=== PATIENT | female | born 1995 | race Caucasian/White ===

== ENCOUNTER 2025-03-03 08:28 | Emergency (ER) | payer MEDICAID ==
[~2025-03-03] VITALS: Ht 167.6 cm; Wt 86.4 kg
[2025-03-03 08:34] VITALS: BP 113/70; PULSE 89; RESP 13; TEMP 98.7; O2SAT 97
--- NOTE | 2025-03-03 09:32 | Physician Documentation ---
History of Present Illness ~ Chief Complaint: Vaginal Bleeding Stated Complaint: IUD COMPLICATIONS Time Seen by : 09:31 HPI 29-year-old female, 10 weeks , presenting with concern for IUD misplacement. She tells me she had an IUD placed a couple of weeks ago. Over the past couple of days she has not been able to feel the strings at her cervix anymore. She also reports having some small brown spotting last night. She contacted her Clinic, and they were trying to schedule an ultrasound, but could not make an appointment for her. She denies any significant infectious symptoms. No vaginal discharge otherwise. No significant lower abdominal pain at this time although she did have some pain at her incision site when she coughed earlier. Medication Reconciliation Allergies: Coded Allergies: chlorhexidine (Verified Allergy, Unknown, rash, 03/03/25) Review of Systems Constitutional: Denies: fever Gastrointestinal: Denies: abdominal pain, nausea, vomiting Physical Exam Vital Signs: Temperature: 98.7, Source: Oral, Heart Rate: 89, Respiratory Rate: 13, BP: 113/70, Pulse Oximetry: 97, Weight: 86.360 Oxygen Flow Rate: 0 Physical Exam General: This is a healthy and well-appearing young female, lying in bed with her children, partner at bedside HEENT: Atraumatic, oropharynx is moist Heart: Regular rate and rhythm, normal-appearing peripheral perfusion Lungs: normal work of breathing, normal oxygen saturation on room air Abdomen: Soft, nondistended, no significant tenderness on palpation in the suprapubic region. CC scar incision is well healing. Psychiatric: Calm and cooperative with exam Progress Results/Orders Results/Orders Orders - RD RICHARD MD Ultrasound Pelvis W/Orwo Dplx (03/03/25 09:49) Completed Orders - RD RICHARD MD Ultrasound Pelvis W/Orwo Dplx (03/03/25 09:49) Vital Signs 03/03/25 08:34 Temp 98.7 Pulse 89 Resp 13 B/P (MAP) 113/70 Pulse Ox 97 O2 Flow Rate 0 EKG/XRAY/CT/US/VASC/MRI Ultrasound : Impression I reviewed the ultrasound, and it appears to show an IUD within the uterus, without evidence of obvious perforation or displacement. I also reviewed the radiology report. Medical Decision Making Additional Comment The patient presents with concern for IUD migration. On exam she is well- appearing, has no significant abdominal tenderness, no significant vaginal bleeding or discharge, no fevers. Ultrasound is limited, but it appears to show an IUD in the correct location, without obvious complication. Given her well appearance I do not feel that any further workup or testing is indicated. 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 She will return here if she develops severe pain, uncontrollable bleeding, or other worsening symptoms. Departure Time of Disposition: 11:20 Disposition: 01 HOME / SELF CARE / HOMELESS Impression: Primary Impression: IUD check up Condition: Stable Referrals: NO PRIMARY CARE PROVIDER (PCP) Comments The ultrasound does not show any dangerous findings, the IUD appears to be in the right location. Please follow-up with your gynecology clinic for re-evaluation as soon as possible. Education Educated: Patient Educated regarding: diagnosis, need for follow up Signature Scribe Signature: na Attestation: RD Hardwick MD March 03, 2025 09:31
--- NOTE | 2025-03-03 11:02 | RADIOLOGY REPORT ---
INDICATION: Concern for IUD movement, can not feel strings TECHNIQUE: Multiple real-time grayscale transabdominal sonographic images along with color and duplex Doppler of the uterus and ovaries were obtained. COMPARISON: None FINDINGS: The uterus measures 6.5 x 3.4 x 3.6 cm. Intrauterine device is visualized in the uterine katharine dy /fundus. The right ovary measures 3.5 x 2.3 x 2.1 cm. The left ovary measures 2.7 x 2.3 x 2.4 cm. Subsequent color and duplex Doppler interrogation of the ovaries demonstrated symmetric vascular flow to both ovaries, though this does not exclude the possibility of torsion due to the dual blood suppl y. IMPRESSION: Intrauterine device is visualized in the uterine body/fundus. Endometrium is not well visualized on this exam.
== END 2025-03-03 11:36 | disposition home or self-care (01) ==
LOC: ER 08:29
DX: Z30.431 Encounter for routine checking of intrauterine contraceptive device (principal); Z88.8 Allergy status to other drugs, medicaments and biological substances
CPT/HCPCS: 76856; 93976; 99284